=== PATIENT | male | born 1935 | race Caucasian/White ===

== ENCOUNTER → 2016-11-26 | Outpatient (CLI) | payer OTHER, BC ==
[~2016-11-26] VITALS: Ht 177.8 cm; Wt 60.8 kg
[~2016-11-26] MED LIST: AZO STANDARD95 MG PO; BIOFREEZE118 ML TOP; CARDIZEM CD120 MG PO; DEPAKOTE ER250 MG PO; ELIQUIS5 MG PO; ERGOCALCIF50000 UNIT PO; FLOMAX0.4 MG PO; KLOR-CON 1010 MEQ PO; LASIX 20 MG TAB20 MG PO; MEDROLDOSEPACK PO; MIRALAX17 GM PO; OMEPRAZOLE20 M1 PO; PERCOCET PO; REFRESH CLASSI1 EACH OPHTHALMIC; SENNA8.6 MG PO; XANAX1 MG PO
--- NOTE | ~2016-11-26 | HPC ---
[facility] [address] [place] [address] PAIN MANAGEMENT CONSULTATION Name: TONY GRANT [facility] [id number] Admission: 11/26/16 Attend Phys: Dilan Crocker DO Discharge: Date of : 33 Report #: [id number] THIS REPORT FOR: //name// CC: Dilan Dorado DATE OF SERVICE: 11/26/2016 CHIEF COMPLAINT: Low back pain. HISTORY OF PRESENT ILLNESS: As you know, the patient is a very pleasant 81-year-old male who has been referred to our service for chronic low back pain. The patient indicates pain began 03/18/2016, progressively worsened. The patient states that it began initially as an achy sensation in the low back and has progressed to a point where the patient is now taking oxycodone 5-6 times a day just to maintain pain control, he is unable to walk due to increasing pain issues. He has been referred to our service for this chronic back pain. He comes to us today with only recent imaging that was done at another hospital. He indicates today pain is steady, describes pain as aching, places current pain score 7/10, daily average anywhere from 4-8/10, worst pain has been is 9/10. The patient states pain is exacerbated with walking, getting out of bed and getting out of a chair, resting and medications appear to improve pain. He has been referred to our service to discuss options for treatment for ongoing low back pain. PAST MEDICAL HISTORY: 1. History of seizure activity. 2. Atrial fibrillation, requiring anticoagulation. 3. Essential hypertension. 4. Anxiety disorder. 5. Depression. 6. Malignant neoplasm of the kidney, unspecified. 7. Cognitive deficits. PAST SURGICAL HISTORY: Appendectomy and tonsillectomy. SOCIAL HISTORY: The patient denies tobacco, IV or illicit drug use, uses one alcoholic beverage per day. He is a retired physician. He is not working, not receiving workmen's compensation, he is accompanied by his and son who are present in room today. The patient is not in litigation in regards to pain. REVIEW OF SYSTEMS: Positive for weight gain, decrease in appetite, fatigue and weakness, heart trouble, atrial fibrillation requiring anticoagulation, loss of appetite, memory loss or confusion, nervousness, depression, hypertension, gastroesophageal reflux disease, and chronic low back pain. All other review of systems negative per 12-point review of systems other than those listed in [address] [address] PAIN MANAGEMENT CONSULTATION Name: TONY GRANT Room #: REG [facility] [id number] Admission: 11/26/16 Attend Phys: Dilan Crocker DO Discharge: Date of : 33 Report #: [id number] history of present illness. PAIN IMPACT SCORE: 33/70 indicating moderate interference of daily activities secondary to pain. ALLERGIES: PENICILLIN. CURRENT MEDICATIONS: 0.4 mg twice a day, Senokot 8.6 mg twice a day, potassium chloride 10 mEq p.o. daily, MiraLax 17 grams per day, oxycodone 5/325 one tab every 4 hours p.r.n. for pain, omeprazole 20 mg per day, furosemide 20 mg per day, Eliquis 5 mg twice a day, Depakote ER 250 mg 3 times a day, diltiazem 120 mg once a day, and alprazolam 1 mg at bedtime. IMAGING: MRI lumbar spine obtained 10/01/2016, shows chronic moderate deformity of T12, previously described in other studies, no evidence of additional compression deformities, displacement fractures or destruction lesions, mild broad-based disk bulge at L1-L2 with spinal stenosis. Thoracic MRI obtained 10/01/2016, shows the deformity at T12-L1, benign appearing bone hemangioma at T10, thoracic spine otherwise normal. Abdomen and pelvis CT obtained on 10/01/2016, shows hypervascular solid mass arising from the lower third of the left kidney consistent with renal cell carcinoma, degenerative lumbar changes, chronic T12 compression fracture, large exophytic cyst arising from the lower pole of the left kidney. Bladder distention possibly secondary to prostate enlargement and outlet obstruction. Whole body bone scan obtained 11/20/2016, shows abnormal activity in mid lumbar spine at L3, may reflect compression injury, metastatic disease is not excluded, abnormal phosphate activity in left upper posterior rib indeterminate for fracture versus metastatic disease, mild degenerative changes in the right shoulder. PHYSICAL EXAMINATION: VITAL SIGNS: Blood pressure 137/54, pulse is 75, respiratory rate 18 and unlabored, the patient is 96% on room air, height 5 feet 10 inches tall, and weight 134 pounds. GENERAL: Ill-appearing, somewhat cachectic 81-year-old male, he appears his stated age, he is placing current pain score at approximately 7/10. HEENT: Normocephalic, atraumatic. Pupils are equal, round, and reactive to light. Extraocular muscles are intact. Sclerae are nonicteric without injection. NEUROLOGIC: Cranial nerves 2-12 are grossly intact. Speech is fluent. The patient is somewhat confused. Most of the history is being provided by the son and the present in room today. LUNGS: Clear. No wheeze, rhonchi, or rales. CARDIOVASCULAR: Irregularly irregular. No appreciable gallop or rub. ABDOMEN: Soft, scaphoid. Active bowel sounds. [facility] [id number] [place] [address] PAIN MANAGEMENT CONSULTATION Name: TONY GRANT Room #: REG [facility]#: [id number] Admission: 11/26/16 Attend Phys: Dilan Crocker DO Discharge: Date of : 33 Report #: [id number] EXTREMITIES: Show no cyanosis and no edema. MUSCULOSKELETAL: There is a significant palpatory tenderness over the lower lumbar spine at approximately L3 level. Deep palpation in the area causes intensification of pain. There is myofascial symptoms related to trigger points in and around the L3 level. No ecchymosis, no skin color changes over the area. Seated straight leg raising negative. Supine straight leg raising negative. Konstantin's test positive for axial back pain over the L3 level. No hip pathology noted. Modified Gaenslen's positive for axial low back pain, no radiation. ASSESSMENT: 1. Compression fracture L3. 2. Possible metastatic cancer involving L3 and left upper rib. 3. Solid mass of left kidney, possible renal cell carcinoma. 4. Chronic low back pain. 5. Chronic intractable pain. PLAN: 1. The patient has been referred to our service where we reviewed all the available imaging, I am concerned very much by the L3 vertebral body level, it shows very highly on the nuclear bone scan this plus another area in the left rib concerning a metastatic disease at both levels. The patient does have known solid mass in the left kidney, though I do not feel this is the source of the symptoms nor does the patient's urologist, who I had the liberty of discussing the case with today. We do have concern that the patient may have prostate metastasis as he does have an enlarged prostate, though we do not have any definitive PSA levels arising, though the distribution of the patient's current findings would correlate more with a prostate metastasis than a renal cell metastasis. It does appear the patient is suffering from pain directly at the L3 level and this is likely a pathologic fracture and needs to be addressed. We discussed with the patient options for treatment, we ultimately determined the patient would do best with kyphoplasty procedure and bone biopsies. 2. The patient will be sent to [facility] for evaluation, plan is to have the patient undergo kyphoplasty at L3 with bone biopsies being performed during the procedure, his bone biopsies will then be sent out, which will give us an idea of what may be involved in the L3 level, whether this is just a pathologic fracture due to osteoporosis or whether this is a metastatic disease process, which I am most concerned about. The patient will be sent for evaluation through the [facility] where he will undergo the vertebral augmentation and bone biopsies. 3. The patient is to follow up with his urologist as quickly as possible. I have discussed with the patient's urologist the concerns we have on the findings and the fact that we see something completely different from MRI only months ago, it is quite concerning especially with this new bone scan findings. The patient will be following up with urology and his primary care as quickly as possible. 4. We will draw PSA levels today and the patient have this done at his [address] [address] PAIN MANAGEMENT CONSULTATION Name: TONY GRANT Room #: REG GABY Quinn#: [id number] Admission: 11/26/16 Attend Phys: Dilan Crocker DO Discharge: Date of : 33 Report #: [id number] facility, this PSA will help guide treatment depending on the findings from the bone biopsies to be performed at the L3 vertebral level. 5. I have increased the patient's oxycodone from 5 mg to 10 mg, we will reduce his dosing to no more than 5 a day, this will reduce the patient's acetaminophen load as he is taking two 5/325 four-six times a day leading to a higher levels of acetaminophen, we will reduce acetaminophen by placing the patient on a 10/325 dosing. This will be done at his facility. 6. The patient will be evaluated by interventional radiology at [facility], the evaluation will be completed with I believe MRI, then possible bone biopsy and kyphoplasty procedure to stabilize this fracture at L3. We will be able to see him back once he has completed this process. 7. We wish to thank you for the opportunity to see the patient in consultation. We are hopeful that the treatment options we are suggesting will provide the patient with good analgesic benefit. Again, we wish to thank you for the opportunity to see him in consultation. By: [id number] Dilan Crocker DO /nt
[2016-11-26 08:54] VITALS: BP 124/71
== END | disposition home or self-care (01) ==
LOC: PAIN 08:26
DX: M48.56XA Collapsed vertebra, not elsewhere classified, lumbar region, initial encounter for fracture (principal); M54.5 Low back pain; G89.29 Other chronic pain; Z88.0 Allergy status to penicillin; R56.9 Unspecified convulsions; I48.91 Unspecified atrial fibrillation; I10 Essential (primary) hypertension; F41.9 Anxiety disorder, unspecified; F32.9 Major depressive disorder, single episode, unspecified; K21.9 Gastro-esophageal reflux disease without esophagitis; Z98.890 Other specified postprocedural states

== ENCOUNTER → 2017-05-20 | Outpatient (CLI) | payer OTHER, BC ==
[~2017-05-20] VITALS: Ht 177.8 cm; Wt 61.7 kg
[~2017-05-20] MED LIST changes: +APAP650 PO; +ONDANSETRON HCL4 M2 PO; +PEPCID20 MG PO; +PERCOCET 7.5-31 EACH PO
--- NOTE | ~2017-05-20 | HPC ---
[facility] [place] [address] PAIN MANAGEMENT CONSULTATION Name: TONY GRANT [facility] [id number] Admission: 05/20/17 Attend Phys: Dilan Crocker DO Discharge: Date of : 33 Report #: [id number] THIS REPORT FOR: //name// CC: Dilan Dorado DO DATE OF SERVICE: 05/20/2017 REFERRING PHYSICIAN: Kris Dorado DO. CHIEF COMPLAINT: Low back pain. HISTORY OF PRESENT ILLNESS: As you know, the patient is an 81-year-old male with longstanding history of low back pain. He has had recurrence of symptoms that has brought him back to our clinic. He has been referred back to trial intra-articular facet injections on the right side. Apparently, this provided excellent benefit in the past with reported 80-90% improvement lasting until just recently. He returns today in followup visit to undergo the next in a series of intraarticular injections. He denies injury or trauma that may have led to recurrence of symptoms. ALLERGIES: PENICILLIN. CURRENT MEDICATIONS: acetaminophen, oxycodone, famotidine, tamsulosin, Senokot, MiraLax, potassium, furosemide, Eliquis, divalproex, diltiazem, Biofreeze, alprazolam. SOCIAL HISTORY: The patient denies tobacco, alcohol or IV illicit drug use. He is retired, retired years ago, unaccompanied today. IMAGING: No new imaging available. PQRS: The patient has known osteoarthritis. He has pain intensity of 5-6/10. He is a fall risk. He has not had a fall in the last 3 months, but does use a cane for ambulation. He is not treated for hypertension, but is on blood thinners. He has been on opioids for greater than 6 months, but this is not contracted through our services. His pain impact score is 36/70, indicating moderate interference. PHYSICAL EXAMINATION: VITAL SIGNS: Blood pressure 123/51, pulse 83, respiratory rate 14, unlabored. The patient is 97% on room air. Height 5 feet 10 inches tall, weight 136 pounds, BMI calculated 19.5. GENERAL: Well-developed, well-nourished, well-hydrated 81-year-old male, appearing stated age, placing current pain score at approximately 5-6/10. [address] [address] PAIN MANAGEMENT CONSULTATION Name: TONY GRANT Room #: REG CLI [facility]#: [id number] Admission: 05/20/17 Attend Phys: Dilan Crocker DO Discharge: Date of : 33 Report #: [id number] HEENT: Normocephalic, atraumatic. Pupils equal, round, reactive to light. Extraocular muscles are intact. Sclerae nonicteric without injection. EXTREMITIES: Show no clubbing, no cyanosis, no edema. MUSCULOSKELETAL: Seated straight leg raising negative. Supine straight leg raising negative. WESLEY test negative. Modified Gaenslen's positive for axial low back pain. Ankle clonus negative. Babinski is negative. He appears intact to light touch from L1 through S2 dermatomes. ASSESSMENT: 1. Facet arthropathy of lower lumbar spine without radicular symptoms. 2. 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 3. Myofascial pain. 4. Chronic intractable pain. PLAN: The patient has returned today in followup visit with ongoing right low back pain. His provocation testing would indicate facet arthropathy. We discussed with patient treatment options for facet generated pain in the lower lumbar spine. There is no radicular component to patient's symptoms by physical exam or report. The discussion of treatment options were as follows: 1. We discussed physical therapy, stretching exercises, core strengthening as the gold standard treatment. We discussed medication management with nonsteroidal anti-inflammatories, but unfortunately this cannot be provided in this patient's case due to Eliquis therapy. We discussed intra-articular facet injections, medial branch nerve blocks and radiofrequency lesioning. After reviewing the risks and benefits of all proposed treatment options, the patient chose to undergo intra-articular facet injections under fluoroscopic guidance. The patient was advised the risks and benefits of intra-articular facet injections. These risks include but are not necessarily limited to bleeding, bruising, infection, worsening pain, no relief of pain, also risk of temporary or permanent muscle weakness, temporary or permanent nerve damage, possible paralysis and . The patient states understood and wished to proceed. 2. No medication changes were made at today's visit. The patient to continue current medical therapy as previously prescribed. 3. We will see the patient back in followup visit on an as needed basis for possible next in the series of intra-articular facet injections. PROCEDURE NOTE DESCRIPTION OF PROCEDURE: Right L4-L5 and L5-S1 intraarticular facet injection under fluoroscopic guidance. This is the first procedure of the first series that the patient is undergoing. [address] [address] PAIN MANAGEMENT CONSULTATION Name: TONY GRANT Room #: REG GABY Rosales#: [id number] Admission: 05/20/17 Attend Phys: Dilan DupreeJeanine ObiDO Discharge: Date of : 33 Report #: [id number] After obtaining written consent, the patient was taken back to the fluoroscopy suite and placed in a prone position with a pillow under the abdomen to decrease the lumbar lordosis and to facilitate needle entry into the facet joints. The skin overlying the lumbosacral area was prepped and draped in an aseptic fashion. AP and lateral fluoroscopic imaging was obtained. Optimal position of the fluoroscope occurred when the joint line was first visualized. The facet joints were identified radiographically directed adjacent to the superior articular process of the caudad vertebrae. The skin overlying the target site(s) of injection was anesthetized using 3 mL of 1% lidocaine. A 22-guage 3-1/2 inch spinal needle with a bent tip was advanced towards the L4-L5 and L5-S1 facet joints on the right side under fluoroscopic guidance. The firm posterior capsule had its characteristic feel and the needle was advanced a few additional millimeters beyond the joint capsule into the joint space, but not into the articular cartilage. After the joint space was entered and aspiration was negative for heme or CSF, 0.2 mL of Omnipaque was injected demonstrating a characteristic facet arthrogram. After negative aspiration for heme or CSF, 1.5 mL of a solution containing 1 mL 40 mg per mL 40 mg total triamcinolone and 0.5 mL of bupivacaine 0.5% was slowly injected at each of 2 facets. The needle was then removed. There were no apparent complications. The patient tolerated the procedure well and was carefully escorted to the recovery room in stable condition. The VAS was 5-6/10 before the procedure and 1/10 ten minutes after the procedure. After meeting discharge criteria, the patient was discharged home. By: [id number] Dilan Crocker DO /nt
[2017-05-20 13:20] VITALS: BP 123/51
== END | disposition home or self-care (01) ==
LOC: PAIN 07:05
DX: M47.817 Spondylosis without myelopathy or radiculopathy, lumbosacral region (principal); M79.1 Myalgia; G89.29 Other chronic pain; Z79.899 Other long term (current) drug therapy; Z88.0 Allergy status to penicillin; Z87.891 Personal history of nicotine dependence